=== PATIENT | male | born 1975 | race Caucasian/White ===

== ENCOUNTER 2020-03-09 06:32 | Outpatient (NON) | payer OTHER, SELFPAY ==
[2020-03-09 19:53] LABS: SARS-CoV-2 RNA PCR Positive
== END 2020-03-09 06:33 ==
LOC: ANHCOVIDDT 06:32
PROVIDERS: PCP Internal Medicine; Visit Provider Nurse Practitioner
DX: U07.1 COVID-19 (principal)
CPT/HCPCS: 87635; C9803; U0003